=== PATIENT | female | born 2000 | race Caucasian/White ===

== ENCOUNTER 2025-02-12 16:59 | Day surgery (SDC) | payer OTHER ==
[2025-02-12 17:11] VITALS: BMI 22.4
[2025-02-12] MEDS ORDERED: hydrALAZINE 20 MG/ML VIAL SLOW IVP PRN (17:40)
[2025-02-12 17:56] LABS: Glucose, Urine (Dipstick) Normal (Negative); Leukocyte Negative (Negative); Protein, Urine (Dipstick) 30 mg/dl (Neg-Trace); Specific Gravity, Urine 1.020 (1.005-1.030)
[2025-02-12] MEDS ORDERED: Acetaminophen 500 MG TAB PO SCH (18:00)
[2025-02-12 18:44] LABS: RBC/HPF 21-50 HPF (0-3)
[2025-02-12 18:45] LABS: Bacteria/HPF None Seen HPF (None Seen); CAUTI Indications for Culture Pregnancy; Urine Culture Reflex Yes Yes; WBC/HPF None Seen HPF (0-3)
== END 2025-02-12 20:03 | disposition home or self-care (01) ==
LOC: CSHLD/OP 16:59
PROVIDERS: ATTEND Obstetrics & Gynecology
DX: O99.891 Other specified diseases and conditions complicating pregnancy (principal); R10.9 Unspecified abdominal pain; R35.0 Frequency of micturition; N89.8 Other specified noninflammatory disorders of vagina; O34.211 Maternal care for low transverse scar from previous cesarean delivery; Z3A.21 21 weeks gestation of pregnancy; Z79.899 Other long term (current) drug therapy
CPT/HCPCS: 81001; 87086; 87480; 87510; 87660